=== PATIENT | male | born 1985 | race Caucasian/White ===

== ENCOUNTER 2025-05-08 23:16 | Emergency (ER) | payer MEDICAID, SELFPAY ==
[2025-05-08 23:23] VITALS: BMI 44.6
[2025-05-08 23:26] VITALS: BP 153/86; PULSE 99; RESP 19; TEMP 36.9; O2SAT 96
--- NOTE | 2025-05-08 23:31 | PD.EDURI ---
Upper Respiratory Inf. RME/HPI General Chief Complaint: Flu Like Symptoms Stated Complaint: COUGHING, STUFFY NOSE Time Seen by Provider: 05/08/25 23:19 Source: patient, RN notes reviewed and old records reviewed Arrival date/time: 05/08/25 23:16 Mode of arrival: ambulatory Limitations: no limitations RME / HPI RME / HPI Narrative: 39yom presents to the ED for 2-day history of congestion and cough. Patient reports multiple sick contacts at work with similar symptoms. He c/o headache and generalized body aches. No sore throat, shortness of breath, chest pain, nausea/vomiting or dizziness reported. Patient took 2 [place]-Seltzers at home without relief. Related Data Previous Rx's ?Medication ?Instructions ?Recorded acetaminophen 500 mg tablet 1,000 mg (2 x 500 mg) PO Q6H PRN 05/09/25 (Tylenol Extra Strength) fever or pain #30 tabs dextromethorphan-guaifenesin ER 60 1 tab PO Q12H PRN congestion/cough 05/09/25 mg-1,200 mg tab,extend #20 tabs release,12hr (Mucinex DM) fluticasone propionate 50 2 spray intranasal BID #16 grams 05/09/25 mcg/actuation nasal spray,suspension (Flonase Allergy Relief) ibuprofen 600 mg tablet 600 mg PO Q6H PRN fever or pain 05/09/25 #20 tabs Allergies Allergy/AdvReac Type Severity Reaction Status Date / Time No Known Allergies Allergy Verified 05/08/25 23:18 Review of Systems Review of Systems Systems Reviewed: All systems reviewed, normal except as documented Constitutional Constitutional: Denies chills, Denies fever(s) and Reports headache(s) ENT Ears, Nose, Mouth, and Throat: Reports headache(s), Reports nasal congestion and Denies vertigo Cardiovascular Cardiovascular: Denies chest pain and Denies dyspnea Respiratory Respiratory: Reports cough and Denies dyspnea Gastrointestinal Gastrointestinal: Denies nausea and Denies vomiting Musculoskeletal Musculoskeletal: Reports myalgias Neurologic Neurologic: Reports headache(s) and Denies vertigo Past Medical History Past Medical History GASTROINTESTINAL: Positive Obesity Surgical History OTHER SURGICAL HX: denies pshx Social History SMOKING STATUS: Current every day smoker SUBSTANCE USE: does not use ALCOHOL: Never ED Exam General Limitations: Present no limitations General appearance: Present alert, in no apparent distress and obese Head Head exam: Present atraumatic and normocephalic Eye Eye exam: Present normal appearance, PERRL and EOMI ENT ENT exam: Present normal oropharynx, mucous membranes moist and other (Mild UAC) Neck Neck exam: Present normal inspection and full ROM Chest Chest inspection: Present normal inspection and symmetric chest wall rise Respiratory Respiratory exam: Present normal lung sounds bilaterally and other (No wheezing, rales or rhonchi); Absent respiratory distress Cardiovascular Cardiovascular exam: Present regular rate and normal rhythm Extremities Exam Extremities exam: Present normal inspection and full ROM Neurological Exam Neurological exam: Present alert and oriented X3 Psychiatric Psychiatric exam: Present normal affect and normal mood Skin Skin exam: Present warm, dry, intact and normal color Course Quality Measures none Orders Category Date Time Status Bedside COVID-19 Antigen Test NOW Care 05/08/25 23:31 Completed Bedside Influenza A&B Antigen Test NOW Care 05/08/25 23:31 Completed Acetaminophen Tab [Tylenol ES Tab] Med 05/08/25 23:31 Discontinued 1,000 mg PO X1 ONE Vital Signs Vital signs: Vital Signs Temperature 98.5 F 05/08/25 23:26 Pulse Rate 99 05/08/25 23:26 Respiratory Rate 19 05/08/25 23:26 Blood Pressure 153/86 H 05/08/25 23:26 Pulse Oximetry (%) 96 05/08/25 23:26 Oxygen Delivery Method Room Air 05/08/25 23:26 Upper Respiratory Infection MDM Narrative MDM Narrative:: 39yom presents to the ED for 2-day history of congestion and cough. Patient reports multiple sick contacts at work with similar symptoms. He c/o headache and generalized body aches. No sore throat, shortness of breath, chest pain, nausea/vomiting or dizziness reported. Patient took 2 [place]-Seltzers at home without relief. Patient is nontoxic-appearing, afebrile, vitals are stable. No evidence of respiratory distress or hypoxia. Suspect viral etiology of symptoms. Encouraged rest, fluids, symptomatic treatment, fever management prn. Stable for discharge, RTED precautions given. Patient data External records reviewed:: None (No prior visits) Clinical information provided by:: patient Social determinants that could affect healthcare access:: none Patient has the following chronic illnesses:: obesity How is presenting disease/condition affected by chronic disease/condition?: uneffected by Evaluation data The following diagnostics were reviewed and interpreted by me:: lab results Lab and/or radiology exams considered but not ordered:: CXR: Lungs clear, no respiratory distress or hypoxia Interpretation Summary: Negative covid/flu Medications / Prescriptions Medications or Prescriptions considered but not ordered:: No antibiotics recommended at this time Medication administrations:: Medication Administration History Discontinued Medications Acetaminophen (Acetaminophen 500 Mg Tablet) 1,000 mg PO X1 ONE Stop: 05/08/25 23:32 Last Admin: 05/08/25 23:45 Dose: 1,000 mg Documented By: ANDREWS Above medication administered in ED Consultations Consultation(s) initiated? (list below): No Diagnosis Upper Respiratory Differential Diagnosis: other (URI, covid, flu, bronchitis, pneumonia, viral syndrome) Most likely diagnosis given after review of the tests above:: URI, viral syndrome Admission Indicated Admission indicated?: not indicated Admission Request Was there a request for admission?: No Disposition Plan Disposition Plan: Discharge Discharge Attestation Discharge Attestation: The patient and all family members were given an opportunity to ask questions and understood the discharge instructions. Discharge instructions specifically effects, indications for sooner follow up or return to the emergency department, and the expected course of current diagnosis. Patient condition: Stable Discharge Plan Plan Patient Disposition: HOME (Self Care) Patient condition on transfer: Stable Prescriptions/Referrals Prescriptions/Med Rec: New dextromethorphan-guaifenesin [Mucinex DM] 60-1,200 mg tablet extended release 12 hr 1 tab PO Q12H PRN (Reason: congestion/cough) Qty: 20 0RF acetaminophen [Tylenol Extra Strength] 500 mg tablet 1,000 mg PO Q6H PRN (Reason: fever or pain) Qty: 30 0RF ibuprofen 600 mg tablet 600 mg PO Q6H PRN (Reason: fever or pain) Qty: 20 0RF fluticasone propionate [Flonase Allergy Relief] 50 mcg/actuation spray,suspension 2 spray intranasal BID Qty: 16 0RF Rx Instructions: administer into each nostril Referrals: Jhony Argueta MD [Primary Care Provider, Family Practice] - In 1 week Problem List Clinical Impression: Upper respiratory infection, Viral infection Patient/Caregiver Discharge Instructions Education Materials: ED Viral Syndrome (Adult), ED URI, Viral, No Abx (Adult) Print Language: French Stand Alone Forms: [employer] Info., Work/School Release, Patient Portal Info Letter PA/PRESS MACHINE OPERATOR Supervising Physician PA/PRESS MACHINE OPERATOR Supervising Physician: Ayan
[2025-05-08] MEDS: ACETAMINOPHEN 500 MG TABLET 1000 MG PO (23:45)
[2025-05-09 00:29] VITALS: RESP 18
== END 2025-05-09 00:29 | disposition home or self-care (01) ==
PROVIDERS: Emergency Provider Emergency Medicine; PCP Family Medicine
DX: J06.9 Acute upper respiratory infection, unspecified (principal); F17.290 Nicotine dependence, other tobacco product, uncomplicated
CPT/HCPCS: 87502; 87635; 99282; A9270